=== PATIENT | female | born 1970 | race Caucasian/White ===

== ENCOUNTER 2018-09-11 17:20 | Emergency (ER) | payer MEDICAID ==
[~2018-09-11] VITALS: Ht 162.6 cm; Wt 63.4 kg
[~2018-09-11 17:20] MED LIST: CHOL2000 PO; HYDR-3151 PO; IBUP-1223 PO; LACT1CAP11 PO; LYSI500T3 PO; METO25TA35 PO; MILK500C PO; MULT-257 PO; No meds per pt.; SACC250C8 PO
--- NOTE | 2018-09-11 18:38 | NUR ---
PT PRESENTED TO ED WITH BILATERAL TREMORS AND WITHDRAWALS FROM ALCOHOL. PT STATES SHE DRINKS 750MLS OF HARD LIQUOR DAILY. PT A&OX4. 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 ASSESSMENT COMPLETED. IV STARTED. AT BEDSIDE.
[2018-09-11] MEDS ORDERED: ONDANSETRON ODT 4 MG ONE (18:40)
[2018-09-11] MEDS ORDERED: LORazepam 1MG TABLET ONE (18:40)
[2018-09-11 18:49] LABS: BASOPHILS # (AUTO) 0.02 x10^3/uL (0-0.1); BASOPHILS % (AUTO) 0 % (0-1); EOSINOPHILS % (AUTO) 2 % (1-7); LYMPHOCYTES # (AUTO) 1.35 x10^3/uL (1-3.4); LYMPHOCYTES % (AUTO) 22 % (22-44); MD NO; MEAN CORPUSCULAR HEMOGLOBIN 32.9 pg (27.0-34.8); MEAN CORPUSCULAR HGB CONC 34.6 g/dL (32.4-35.8); MEAN CORPUSCULAR VOLUME 95.1 fL (80-100); MONOCYTES # (AUTO) 0.69 x10^3/uL (0.2-0.8); MONOCYTES % (AUTO) 11 % (2-9); NEUTROPHILS # (AUTO) 4.05 x10^3/uL (1.8-6.8); NEUTROPHILS % (AUTO) 65 % (42-75); PLATELET COUNT 477 x10^3/uL (130-400); RED CELL DISTRIBUTION WIDTH 12.9 % (9.6-15.2)
[2018-09-11 19:00] LABS: ALANINE AMINOTRANSFERASE 118 U/L (12-78); ALBUMIN 3.5 g/dL (3.4-5.0); ANION GAP 11 mmol/L (5-15); CALCIUM 9.2 mg/dL (8.5-10.1); CHLORIDE 100 mmol/L (98-107); CREATININE 0.75 mg/dL (0.55-1.02)
[2018-09-11] MEDS ORDERED: ONDANSETRON ODT 4 MG PO ONE (19:00)
[2018-09-11] MEDS ORDERED: LORazepam 1MG TABLET PO ONE (19:00)
[2018-09-11 19:02] LABS: ALKALINE PHOSPHATASE 61 U/L (45-117); BILIRUBIN,TOTAL 1.1 mg/dL (0.2-1.0)
--- NOTE | 2018-09-11 19:04 | NUR ---
received report from JERRELL Corrigan
--- NOTE | 2018-09-11 19:05 | NUR ---
REPORT GIVEN TO STEPHEN ALLAN
[2018-09-11] MEDS ORDERED: LORazepam 2 MG/ML, 1ML ONE (19:46)
[2018-09-11 19:49] LABS: HCG UR SG 1.016 (1.003-1.030)
[2018-09-11 19:50] LABS: MICROSCOPIC INDICATED
[2018-09-11 19:51] LABS: CULTURE INDICATED? YES
--- NOTE | 2018-09-11 19:52 | NUR ---
tremors noted. MD aware. medicated. IVF hung.
[2018-09-11] MEDS ORDERED: LORazepam 2 MG/ML, 1ML IVPush ONE (20:00)
[2018-09-11] MEDS ORDERED: SODIUM CHLORIDE 0.9% 1,000ML IVBOLUS ONE (20:00)
--- NOTE | 2018-09-11 20:15 | NUR ---
oxygen drop to high 80's post ativan. placed on 2 liters.
[2018-09-11 21:18] VITALS: BP 108/73
--- NOTE | 2018-09-11 21:18 | NUR ---
re-evaluation done. patient discharged with prescriptions and instruction. verbalized understanding.
== END 2018-09-11 21:22 | disposition home or self-care (01) ==
LOC: ED 19:05
DX: F10.239 Alcohol dependence with withdrawal, unspecified (principal); Z90.49 Acquired absence of other specified parts of digestive tract; Z90.710 Acquired absence of both cervix and uterus; Z98.51 Tubal ligation status; Z88.2 Allergy status to sulfonamides; Y90.9 Presence of alcohol in blood, level not specified
CPT/HCPCS: 36415; 80053; 80307; 81001; 81025; 83690; 85025; 87086; 96361; 96374; 99283; J2060; J7030; Q0162

== ENCOUNTER 2019-07-10 07:23 | Emergency (ER) | payer MEDICAID ==
[~2019-07-10] VITALS: Ht 162.6 cm; Wt 77.4 kg
[2019-07-10] MEDS ORDERED: SODIUM CHLORIDE 0.9% 1,000ML IVBOLUS ONE (08:30)
[2019-07-10] MEDS ORDERED: ONDANSETRON 2MG/ML, 2ML IVPush ONE (08:30)
[2019-07-10 08:34] LABS: BASOPHILS # (AUTO) 0.02 x10^3/uL (0-0.1); BASOPHILS % (AUTO) 0 % (0-1); EOSINOPHILS # (AUTO) 0.02 x10^3/uL (0-0.4); EOSINOPHILS % (AUTO) 0 % (1-7); LYMPHOCYTES % (AUTO) 18 % (22-44); MD NO; MEAN CORPUSCULAR HEMOGLOBIN 31.3 pg (27.0-34.8); MEAN PLATELET VOLUME 6.9 fL (7.4-10.4); MONOCYTES # (AUTO) 0.62 x10^3/uL (0.2-0.8); MONOCYTES % (AUTO) 8 % (2-9); NEUTROPHILS % (AUTO) 73 % (42-75); PLATELET COUNT 231 x10^3/uL (130-400); RED BLOOD COUNT 4.98 x10^6/uL (3.82-5.3); RED CELL DISTRIBUTION WIDTH 13.6 % (9.6-15.2)
[2019-07-10] MEDS ORDERED: ONDANSETRON 2MG/ML, 2ML ONE (08:34)
[2019-07-10] MEDS ORDERED: LORazepam 2 MG/ML, 1ML ONE ×2 (08:34→08:49)
[2019-07-10] MEDS: LORazepam 2 MG/ML, 1ML IVPush PRN ×2 (08:41→08:51)
[2019-07-10 08:45] LABS: ALANINE AMINOTRANSFERASE 74 U/L (12-78); ALBUMIN 4.1 g/dL (3.4-5.0); ANION GAP 8 mmol/L (5-15); CALCIUM 9.4 mg/dL (8.5-10.1); CHLORIDE 105 mmol/L (98-107); CREATININE 0.83 mg/dL (0.55-1.02)
[2019-07-10 08:48] LABS: ALKALINE PHOSPHATASE 51 U/L (45-117); TOTAL PROTEIN 7.8 g/dL (6.4-8.2)
[2019-07-10] MEDS ORDERED: THIAMINE 100 MG in SODIUM CHLORIDE 0.9% 50 ML IVPB ONE (09:00)
--- NOTE | 2019-07-10 09:04 | NUR ---
LATE NOTE ENTRY DUE TO PT CARE. TASK RN, FIRST CONTACT WITH PT. PIV established, medication provided per EMAR, CIWA score established, PIV fluids and medication provided per EMAR. Pt placed on 4L oxygen via NC after medication administration. No other needs expressed. Pt resting on gurney with family at bedside. Pt connected to NIBP cuff, continous pulse ox, and director of cardiac rehabilitation. Bedrails up x 2 and call light within reach.
--- NOTE | 2019-07-10 09:23 | NUR ---
REPORT RECEIVED FROM PRIMARY RN RUFINO AND TASK RN WOODROW. PT IS A&OX4, RESPS EVEN AND UNLABORED. PT REPORTS SYMPTOMS RESOLVED S/P ATIVAN. PT IS 90-91% ON 4L NASAL CANNULA, OXYGEN TITRATED UP TO 5L VIA NC. SPO2 INCREASED TO 92-94%. ALL MONITORS IN PLACE. CALL LIGHT IN REACH. AWAITING MD REASSESSMENT AND DISPO AT THIS TIME.
--- NOTE | 2019-07-10 09:28 | NUR ---
NORMAN Granados notified of pt's current oxygen requirements. pt to be discharged when tolerating room air. pt and family updated with POC.
--- NOTE | 2019-07-10 10:16 | NUR ---
RN TITRATING OXYGEN DOWN SUCCESSSFULLY. PT A&OX4, RESPS EVEN AND UNLABORED. CIWA SCORE 1 AT THIS TIME. PT DENIES PAIN.
[2019-07-10 10:44] VITALS: BP 124/80
--- NOTE | 2019-07-10 10:45 | NUR ---
PT IS A&OX4, RESPS EVEN AND UNLABORED. NO TREMORS NOTED, CIWA SCORE REMAINS AT 1. PT'S SPO2 HAS BEEN MONITORED CONTINUOUSLY, REMAINS AT 93-94% ON ROOM AIR AT TIME OF DISCHARGE. PIV DC'D WITH TIP INTACT. PT GIVEN DC INSTRUCTIONS AND SCRIPT, EDUCATED REGARDING DC RX FOR LIBRIUM. PT EDUCATED NOT TO DRIVE D/T MEDS GIVEN. FRIEND AT BEDSIDE WITH PT, FRIEND TO DRIVE PT HOME. PT VERBALIZES PLAN TO ESTABLISH WITH OUTPATIENT ALCOHOL SUPPORT GROUP AND PCP FOR ALCOHOL CESSATION. PT AMB TO DC DESK WITH STEADY GAIT, NADN AT DC.
== END 2019-07-10 10:46 | disposition home or self-care (01) ==
LOC: ED 08:58
DX: F10.239 Alcohol dependence with withdrawal, unspecified (principal); Y90.0 Blood alcohol level of less than 20 mg/100 ml
CPT/HCPCS: 36415; 80053; 80307; 83690; 85025; 96365; 96375; 99283; J2060; J2405; J3411; J7030

== ENCOUNTER 2019-08-02 11:09 | Emergency (ER) | payer MEDICAID ==
[~2019-08-02] VITALS: Ht 162.6 cm; Wt 74.0 kg
[2019-08-02] MEDS ORDERED: CHLO25CA9 PO (11:20)
--- NOTE | 2019-08-02 11:22 | NUR ---
Biba from home. ETOH withdrawal. trying to get sober, was seen at [facility] 07/10 and given librium rx. last drink yest 1100 1 pint vodka + 1 beer. librium 25 mg at 0800 today. pt shaking, tachycardic, anxious. having visual disturbances, no auditory disturbances. denies seizure withdrawal hx. sts has not had alcohol between 07/10 and yest. +n/v/d. also sts diarrhea x9 days, twice this am. denies SI. fsbs 114. call white in reach, awaiting MD.
[2019-08-02] MEDS ORDERED: LORazepam 2 MG/ML, 1ML ONE (11:41)
--- NOTE | 2019-08-02 11:58 | NUR ---
tech unable to complete ekg bc pt shaking so much. will wait for ativan to start working. meds per mar, piv est, labs sent. c/o nausea will notify as
[2019-08-02] MEDS ORDERED: SODIUM CHLORIDE FLUSH 10ML SYR IVF ONE (12:00)
[2019-08-02] MEDS ORDERED: SODIUM CHLORIDE 0.9% 1,000ML IVBOLUS ONE (12:00)
[2019-08-02] MEDS ORDERED: LORazepam 2 MG/ML, 1ML IVPush PRN (12:00)
[2019-08-02] MEDS ORDERED: THIAMINE 100 MG in SODIUM CHLORIDE 0.9% 50 ML IVPB ONE (12:00)
[2019-08-02] MEDS ORDERED: ONDANSETRON 2MG/ML, 2ML ONE (12:02)
--- NOTE | 2019-08-02 12:05 | NUR ---
jaelyn per mar. pt reports feeling better from ativan, less visibly shaky, more calm, HR 98. call white in reach.
[2019-08-02 12:16] LABS: BASOPHILS # (AUTO) 0.05 x10^3/uL (0-0.1); BASOPHILS % (AUTO) 1 % (0-1); EOSINOPHILS # (AUTO) 0.01 x10^3/uL (0-0.4); EOSINOPHILS % (AUTO) 0 % (1-7); LYMPHOCYTES # (AUTO) 1.69 x10^3/uL (1-3.4); LYMPHOCYTES % (AUTO) 20 % (22-44); MD NO; MEAN CORPUSCULAR HEMOGLOBIN 31.1 pg (27.0-34.8); MEAN CORPUSCULAR HGB CONC 33.8 g/dL (32.4-35.8); MEAN CORPUSCULAR VOLUME 92.1 fL (80-100); MEAN PLATELET VOLUME 7.4 fL (7.4-10.4); MONOCYTES # (AUTO) 0.55 x10^3/uL (0.2-0.8); MONOCYTES % (AUTO) 7 % (2-9); NEUTROPHILS # (AUTO) 6.25 x10^3/uL (1.8-6.8); NEUTROPHILS % (AUTO) 73 % (42-75); PLATELET COUNT 274 x10^3/uL (130-400); RED BLOOD COUNT 5.28 x10^6/uL (3.82-5.3); RED CELL DISTRIBUTION WIDTH 13.9 % (9.6-15.2)
--- NOTE | 2019-08-02 12:23 | NUR ---
desat to 70s, placed on 2 LNC. Desat 5 min later to 68% on oxygen. 5 LNC, pt sat up. call white in reach, on monitor.
[2019-08-02 12:27] LABS: ALANINE AMINOTRANSFERASE 87 U/L (12-78); ALBUMIN 4.5 g/dL (3.4-5.0); ANION GAP 16 mmol/L (5-15); CALCIUM 9.9 mg/dL (8.5-10.1); CHLORIDE 102 mmol/L (98-107)
[2019-08-02 12:29] LABS: ALKALINE PHOSPHATASE 62 U/L (45-117); BILIRUBIN,TOTAL 1.1 mg/dL (0.2-1.0); CREATININE 1.13 mg/dL (0.55-1.02); TOTAL PROTEIN 8.5 g/dL (6.4-8.2)
[2019-08-02] MEDS ORDERED: ONDANSETRON 2MG/ML, 2ML IVPush ONE (12:30)
--- NOTE | 2019-08-02 12:53 | NUR ---
pt to be dc home. pt notified, agrees. pt drowsy, will call for a ride. ivf still infusing. will d/c after bolus done. vs improved, hr 80s. no more shaking.
--- NOTE | 2019-08-02 12:59 | NUR ---
given water, o2 titrated down. sats stable. as
--- NOTE | 2019-08-02 13:29 | NUR ---
pt desats to 89% on RA when drowsing off, 97% when awake. pt calling for a ride. wakes very quickly. fluids infused. no shaking. vss.
--- NOTE | 2019-08-02 13:40 | NUR ---
pt has called for ride, verbalizes feeilng better, vss.
[2019-08-02 13:41] VITALS: BP 126/75
== END 2019-08-02 13:56 | disposition home or self-care (01) ==
LOC: ED 13:54
DX: F10.239 Alcohol dependence with withdrawal, unspecified (principal); Z90.49 Acquired absence of other specified parts of digestive tract; Z90.710 Acquired absence of both cervix and uterus; Y90.0 Blood alcohol level of less than 20 mg/100 ml
CPT/HCPCS: 36415; 80053; 85025; 93005; 96365; 96366; 96375; 99284; J2060; J2405; J3411; J7030

== ENCOUNTER 2019-11-01 11:03 | Emergency (ER) | payer MEDICAID ==
[~2019-11-01] VITALS: Ht 162.6 cm; Wt 55.7 kg
[~2019-11-01 11:03] MED LIST changes: +CHLO25CA9 PO
--- NOTE | 2019-11-01 11:15 | NUR ---
assumed care of pt. pt presents from triage via WC c/o ETOH withdrawl since last nocs. pt reports that her last drink was yesterday and that she drinks vodka heavily every day and has for several years. pt reports that she has had W/D before. per SO at bedside pt did not stop drinking on purpose, that "her body just crashes now and she can't". pt is very tremulous and tachycardic. diaphoretic and flushed. anxious. cooperative. [place]. reports that she is having abd. pain.
[2019-11-01] MEDS ORDERED: SODIUM CHLORIDE FLUSH 10ML SYR IVF ONE (11:30)
[2019-11-01] MEDS ORDERED: LORazepam 2 MG/ML, 1ML IVPush ONE (11:30)
[2019-11-01] MEDS ORDERED: ONDANSETRON 2MG/ML, 2ML IVPush ONE (11:30)
[2019-11-01] MEDS ORDERED: SODIUM CHLORIDE 0.9% 1,000ML IVBOLUS ONE (11:30)
[2019-11-01] MEDS ORDERED: FAMOTIDINE 20 MG/2 ML IVPush ONE (11:30)
--- NOTE | 2019-11-01 11:30 | NUR ---
pt IV strted after 2nd attempt. well tolerated. fluid bolus initiated
[2019-11-01] MEDS ORDERED: LORazepam 2 MG/ML, 1ML ONE (11:43)
--- NOTE | 2019-11-01 11:45 | NUR ---
pt vomiting. tachycardic. pt has been medicated for tremulous actiity. sz precautions in place. pt having some epistaxis. blow and pressure applied and bleeding ceased
[2019-11-01 12:10] LABS: BASOPHILS # (AUTO) 0.02 x10^3/uL (0-0.1); BASOPHILS % (AUTO) 0 % (0-1); EOSINOPHILS # (AUTO) 0.06 x10^3/uL (0-0.4); EOSINOPHILS % (AUTO) 1 % (1-7); LYMPHOCYTES # (AUTO) 2.47 x10^3/uL (1-3.4); LYMPHOCYTES % (AUTO) 31 % (22-44); MD NO; MEAN CORPUSCULAR HEMOGLOBIN 31.3 pg (27.0-34.8); MEAN CORPUSCULAR HGB CONC 33.5 g/dL (32.4-35.8); MEAN CORPUSCULAR VOLUME 93.3 fL (80-100); MEAN PLATELET VOLUME 7.4 fL (7.4-10.4); MONOCYTES % (AUTO) 8 % (2-9); NEUTROPHILS # (AUTO) 4.74 x10^3/uL (1.8-6.8); NEUTROPHILS % (AUTO) 60 % (42-75); PLATELET COUNT 243 x10^3/uL (130-400); RED BLOOD COUNT 5.06 x10^6/uL (3.82-5.3); RED CELL DISTRIBUTION WIDTH 14.4 % (9.6-15.2)
--- NOTE | 2019-11-01 12:15 | NUR ---
pt tremulous activity has subsided significantly. IV infusion completed. pt calm and cooperative. pink warm and dry. blankets given and positioning for comfort. still having some nausea, no vomiting
[2019-11-01 12:18] LABS: ALANINE AMINOTRANSFERASE 82 U/L (12-78); ALBUMIN 4.2 g/dL (3.4-5.0); ANION GAP 10 mmol/L (5-15); CALCIUM 9.6 mg/dL (8.5-10.1); CHLORIDE 107 mmol/L (98-107); CREATININE 0.93 mg/dL (0.55-1.02)
[2019-11-01] MEDS ORDERED: ONDANSETRON 2MG/ML, 2ML ONE (12:18)
[2019-11-01] MEDS ORDERED: FAMOTIDINE 20 MG/2 ML ONE (12:18)
[2019-11-01 12:20] LABS: ALKALINE PHOSPHATASE 53 U/L (45-117); BILIRUBIN,TOTAL 0.9 mg/dL (0.2-1.0); TOTAL PROTEIN 8.2 g/dL (6.4-8.2)
--- NOTE | 2019-11-01 12:45 | NUR ---
pt has no tremulous activity at this time. no nausea, no vomiting, denies pain. sitting up on gurney in position of comfort. SO at bedside
--- NOTE | 2019-11-01 13:25 | NUR ---
pt to be D/C, O2 removed to check pulse ox
--- NOTE | 2019-11-01 13:35 | NUR ---
pt 96% on RA. pt to be D/C with SO
[2019-11-01 13:54] VITALS: BP 117/75
== END 2019-11-01 13:58 | disposition home or self-care (01) ==
LOC: ED 11:21
DX: K29.20 Alcoholic gastritis without bleeding (principal); F10.10 Alcohol abuse, uncomplicated; F10.239 Alcohol dependence with withdrawal, unspecified; R45.1 Restlessness and agitation; Y90.0 Blood alcohol level of less than 20 mg/100 ml
CPT/HCPCS: 36415; 80053; 80307; 83690; 85025; 96374; 96375; 99285; J2060; J2405; J3490; J7030

== ENCOUNTER 2021-01-28 09:56 | Emergency (ER) | payer MEDICAID ==
[~2021-01-28] VITALS: Ht 167.6 cm; Wt 77.0 kg
[2021-01-28] MEDS ORDERED: THIAMINE 100MG TABLET PO ONE (10:30)
[2021-01-28] MEDS ORDERED: LORazepam 2 MG/ML, 1ML IVPush ONE (10:30)
[2021-01-28] MEDS ORDERED: PLEASE ENTER HEIGHT AND WEIGHT MC SCH (10:30)
[2021-01-28] MEDS ORDERED: SODIUM CHLORIDE FLUSH 10ML SYR IVF ONE (10:30)
[2021-01-28] MEDS ORDERED: ONDANSETRON ODT 4 MG PO ONE (10:30)
[2021-01-28] MEDS ORDERED: SODIUM CHLORIDE 0.9% 1,000ML IVBOLUS ONE (10:30)
[2021-01-28 10:32] LABS: BASOPHILS % (AUTO) 1 % (0-1); EOSINOPHILS % (AUTO) 0 % (1-7); LYMPHOCYTES % (AUTO) 15 % (22-44); MEAN CORPUSCULAR HEMOGLOBIN 31.6 pg (27.0-34.8); MEAN CORPUSCULAR HGB CONC 34.3 g/dL (32.4-35.8); MEAN PLATELET VOLUME 7.9 fL (7.4-10.4); MONOCYTES % (AUTO) 6 % (2-9); NEUTROPHILS % (AUTO) 78 % (42-75); PLATELET COUNT 262 x10^3/uL (130-400); RED BLOOD COUNT 5.25 x10^6/uL (3.82-5.3); RED CELL DISTRIBUTION WIDTH 13.4 % (9.6-15.2)
[2021-01-28 10:43] LABS: ALANINE AMINOTRANSFERASE 211 U/L (12-78); ALBUMIN 4.6 g/dL (3.4-5.0); ANION GAP 12 mmol/L (5-15); CALCIUM 10.2 mg/dL (8.5-10.1); CHLORIDE 98 mmol/L (98-107)
[2021-01-28 10:45] LABS: ALKALINE PHOSPHATASE 85 U/L (45-117); BILIRUBIN,TOTAL 1.4 mg/dL (0.2-1.0); TOTAL PROTEIN 8.8 g/dL (6.4-8.2)
--- NOTE | 2021-01-28 10:58 | NUR ---
EXECUTIVE SEARCH CONSULTANT: PT TO ROOM FROM LOBBY
--- NOTE | 2021-01-28 11:05 | NUR ---
PT BIB [facility] VIA POV. PER PT SHE'S WITHDRAWING FROM ALCOHOL. PT LAST DRINK WAS THURSDAY, SHE STATES SHE HAD 2 BEERS AND 1/4 PINT OF VODKA. PT STATES SHE HASN'T BEEN DRINKING EVERYDAY BUT DOES BINGE DRINK. PT STATES SHE'S HAVING N/V AND TREMORS. DENIES VISUAL/AUDITORY HALLUCINATIONS. PT RESTING IN [facility], MONTIORING IN PLACE, SEIZURE PRECAUTIONS IN PLACE, NADN AT THIS TIME, [facility] AT BEDSIDE, WCTM.
[2021-01-28] MEDS ORDERED: THIAMINE 100MG TABLET ONE (11:33)
[2021-01-28] MEDS ORDERED: LORazepam 2 MG/ML, 1ML ONE (11:33)
[2021-01-28] MEDS ORDERED: ONDANSETRON ODT 4 MG ONE (11:33)
[2021-01-28 12:21] VITALS: BP 136/85
--- NOTE | 2021-01-28 12:52 | NUR ---
EDMD AT BEDSIDE.
== END 2021-01-28 13:59 | disposition home or self-care (01) ==
LOC: ED 12:47
DX: F10.239 Alcohol dependence with withdrawal, unspecified (principal); R11.2 Nausea with vomiting, unspecified; R94.31 Abnormal electrocardiogram [ECG] [EKG]; Y90.0 Blood alcohol level of less than 20 mg/100 ml
CPT/HCPCS: 36415; 80053; 85025; 93005; 96361; 96374; 99284; J2060; J7030; Q0162